=== PATIENT | female | born 1955 | race Caucasian/White ===

== ENCOUNTER 2018-07-20 15:28 | Emergency (ER) | payer MEDICARE, OTHER ==
[~2018-07-20] VITALS: Ht 167.6 cm; Wt 63.5 kg
[~2018-07-20 15:28] MED LIST: MAXZIDE-25 MG1 EACH PO
[2018-07-20] MEDS ORDERED: CENTRUM SILVER1 EAC4 PO (15:36)
[2018-07-20] MEDS ORDERED: ASPIR 8181 MG PO (15:36)
[2018-07-20] MEDS ORDERED: KRILL OIL500 MG PO (15:36)
[2018-07-20 15:53] LABS: ABSOLUTE LYMPHOCYTES 1.2 thou/uL (0.8-5.3); ABSOLUTE MONOCYTES 0.4 thou/uL (0.0-1.2); ABSOLUTE NEUTROPHILS 9.5 thou/uL (1.6-8.1); BASOPHILS 0.3 %; EOSINOPHILS 0.2 %; HEMATOCRIT 36.7 % (37.0-47.0); HEMOGLOBIN 12.1 gm/dL (12.0-15.0); LYMPHOCYTES 10.9 %; MCH 31.4 pg (26.0-34.0); MCV 95.3 fL (80.0-100.0); MONOCYTES 3.9 %; MPV 7.5 fl. (7.2-11.1); NUCLEATED RBCS 0 /100WBC; PLATELET COUNT* 287 thou/uL (150-400); POLYS 84.7 %; RBC 3.85 mil/uL (4.20-5.00); RDW-CV 13.1 % (10.5-14.5); WBC 11.2 thou/uL (4.0-11.0)
[2018-07-20 16:05] LABS: ANION GAP 9 mmol/L (7-16); BUN 22 mg/dL (7-18); CALCIUM 9.3 mg/dL (8.5-10.1); CHLORIDE 98 mmol/L (98-107); CO2 30 mmol/L (21-32); GLUCOSE 171 mg/dL (70-99); POTASSIUM 3.7 mmol/L (3.5-5.1); SODIUM 137 mmol/L (136-145)
[2018-07-20 16:11] LABS: ALBUMIN 3.9 g/dL (3.4-5.0); ALKALINE PHOSPHATASE 52 U/L (46-116); LIPASE 441 U/L (73-393); SGOT 14 U/L (15-37); SGPT 19 U/L (30-65); TOTAL BILIRUBIN 0.4 mg/dL (<0.1-1.0); TOTAL PROTEIN 8.2 g/dL (6.4-8.2); TROPONIN-I LEVEL <0.06 ng/mL (<0.06)
[2018-07-20 16:13] LABS: URINE BILIRUBIN NEGATIVE (Negative); URINE BLOOD TRACE (Negative); URINE CLARITY CLEAR; URINE COLOR YELLOW; URINE GLUCOSE-RANDOM NEGATIVE (Negative); URINE KETONES NEGATIVE (Negative); URINE LEUKOCYTES-REFLEX NEGATIVE (Negative); URINE NITRITE-REFLEX NEGATIVE (Negative); URINE PROTEIN NEGATIVE (Negative); URINE SPECIFIC GRAVITY >= 1.030 (1.005-1.030); URINE UROBILINOGEN 0.2 E.U./dl (0.2-1.0)
[2018-07-20 18:44] LABS: LIPASE 410 U/L (73-393); TROPONIN-I LEVEL <0.06 ng/mL (<0.06)
[2018-07-20 19:13] VITALS: BP 130/61
--- NOTE | 2018-07-21 14:54 | EKG ---
[place] [address] ELECTROCARDIOGRAM REPORT Name: JANKI LEE Room: [facility]#: [id number] Admission: 07/20/18 Attend Phys: Discharge: 07/20/18 Date of : 51 Report #: [id number] THIS REPORT FOR: //name// [facility] ED Test Date: 2018-07-20 Test Time: 15:49:45 Pat Name: JANKI LEE Department: Room: Gender: F Transition Advisor: Russ BONNER : 1955 Requested By: Cece Monteiro Order Number: [id number] MD: Marcus Ibarra Measurements Intervals [place] Rate: 77 P: 87 [place]: 159 QRS: 50 QRSD: 95 T: 37 QT: 410 QTc: 465 Interpretive Statements Sinus rhythm No previous ECG available for comparison Electronically Signed On 07-21-2018 14:53:54 [employer] by Marcus Ibarra [email or web address] <ELECTRONICALLY SIGNED> By: Marcus Ibarra MD, [facility] 07/21/18 1453 1549 1549 Marcus Ibarra MD, FACC /EPI
== END 2018-07-20 19:13 | disposition home or self-care (01) ==
LOC: M.ERS 15:28
PROVIDERS: Physician Assistant
DX: R07.89 Other chest pain (principal); R42 Dizziness and giddiness; Z85.3 Personal history of malignant neoplasm of breast